=== PATIENT | male | born 1965 | race Caucasian/White ===

== ENCOUNTER 2019-08-24 00:50 | Emergency (ER) | payer BC ==
[~2019-08-24] VITALS: Ht 167.6 cm; Wt 74.6 kg
[2019-08-24] MEDS ORDERED: ONDANSETRON 2MG/ML, 2ML ONE (01:26)
[2019-08-24] MEDS ORDERED: MORPHINE SULFATE 4 MG/ML, 1ML ONE (01:26)
[2019-08-24] MEDS ORDERED: ASPIRIN 81 MG TABLET CHEW ONE (01:26)
[2019-08-24] MEDS ORDERED: ONDANSETRON 2MG/ML, 2ML IVPush ONE (01:30)
[2019-08-24] MEDS ORDERED: ASPIRIN 81 MG TABLET CHEW PO ONE (01:30)
[2019-08-24] MEDS ORDERED: MORPHINE SULFATE 4 MG/ML, 1ML IVPush PRN (01:30)
[2019-08-24 01:41] LABS: BASOPHILS # (AUTO) 0.04 x10^3/uL (0-0.1); BASOPHILS % (AUTO) 0 % (0-1); EOSINOPHILS # (AUTO) 0.05 x10^3/uL (0-0.4); EOSINOPHILS % (AUTO) 0 % (1-7); LYMPHOCYTES # (AUTO) 1.78 x10^3/uL (1-3.4); LYMPHOCYTES % (AUTO) 14 % (22-44); MD NO; MEAN CORPUSCULAR HGB CONC 33.5 g/dL (33.2-36.2); MEAN CORPUSCULAR VOLUME 92.6 fL (81-97); MEAN PLATELET VOLUME 7.7 fL (7.4-10.4); MONOCYTES % (AUTO) 9 % (2-9); NEUTROPHILS # (AUTO) 9.62 x10^3/uL (1.8-6.8); NEUTROPHILS % (AUTO) 76 % (42-75); PLATELET COUNT 202 x10^3/uL (130-400); RED BLOOD COUNT 4.97 x10^6/uL (4.38-5.82); RED CELL DISTRIBUTION WIDTH 13.4 % (9.4-14.8)
[2019-08-24 01:51] LABS: ALBUMIN 3.8 g/dL (3.4-5.0); ANION GAP 9 mmol/L (5-15); CALCIUM 8.9 mg/dL (8.5-10.1); CHLORIDE 108 mmol/L (98-107); CREATININE 1.14 mg/dL (0.7-1.3)
[2019-08-24 01:55] LABS: TROPONIN I < 0.015 ng/mL (0.000-0.045)
[2019-08-24] MEDS ORDERED: OMNIPAQUE 350 MG/ML, 75ML BOTTLE ONE (02:19)
[2019-08-24] MEDS ORDERED: CEFTRIAXONE PMX 1GM/50ML 50 ML ONE (02:53)
[2019-08-24] MEDS ORDERED: CEFTRIAXONE PMX 1GM/50ML 50 ML IV ONE (03:00)
[2019-08-24] MEDS ORDERED: SODIUM CHLORIDE 0.9% 1,000ML IVBOLUS ONE (03:00)
[2019-08-24] MEDS ORDERED: AZITHROMYCIN 500 MG TABLET PO ONE (03:00)
--- NOTE | 2019-08-24 03:05 | NUR ---
PT RESTING AT THIS TIME. PAIN NOW 05/03. IVF AND ABX INFUSING AT THIS TIME. 92-94% ON RA.
[2019-08-24] MEDS ORDERED: AZITHROMYCIN 500 MG TABLET ONE (03:14)
[2019-08-24 03:47] VITALS: BP 116/83
== END 2019-08-24 03:49 | disposition home or self-care (01) ==
LOC: ED 01:55
DX: J18.1 Lobar pneumonia, unspecified organism (principal); R07.89 Other chest pain; R05 Cough; N20.0 Calculus of kidney; R94.31 Abnormal electrocardiogram [ECG] [EKG]; F17.200 Nicotine dependence, unspecified, uncomplicated
CPT/HCPCS: 36415; 71275; 80048; 82040; 83880; 84484; 85025; 93005; 96365; 96375; 99285; J0696; J2270; J2405; J7030; Q9967